=== PATIENT | female | born 1975 | race Two or more races ===

== ENCOUNTER → 2017-08-03 | Outpatient (CLI) | payer MEDICAID | LOC: CIMAGING 07:30 | PROVIDERS: ATTEND Family Medicine | DX: R16.0 Hepatomegaly, not elsewhere classified (principal); K76.0 Fatty (change of) liver, not elsewhere classified | CPT/HCPCS: 76700-PO ==

== ENCOUNTER → 2017-09-16 | Outpatient (CLI) | payer MEDICAID | LOC: FIMAGING 09:10 | DX: K30 Functional dyspepsia (principal) | CPT/HCPCS: 78264; A9541 ==

== ENCOUNTER → 2017-12-22 | Outpatient (CLI) | payer MEDICAID | LOC: CIMAGING 09:16 | DX: R16.0 Hepatomegaly, not elsewhere classified (principal); K76.0 Fatty (change of) liver, not elsewhere classified | CPT/HCPCS: 76700-PO ==